=== PATIENT | female | born 1980 | race Caucasian/White ===

== ENCOUNTER → 2020-08-27 10:16 | Outpatient (CLI) | payer OTHER, SELFPAY | PROVIDERS: Visit Provider Obstetrics & Gynecology | DX: Z03.818 Encounter for observation for suspected exposure to other biological agents ruled out (principal) | CPT/HCPCS: 87635; C9803; U0005; U0003 ==

== ENCOUNTER 2020-08-28 14:30 | Inpatient (IN) | payer OTHER, SELFPAY ==
[2015-01-28 15:03] VITALS: BMI 33.5
[2020-08-28] VITALS (22 sets, daily range): BP systolic 100–130; BP diastolic 56–69; PULSE 82–104; RESP 18; TEMP 36.6–37.4; O2SAT 84–100; BMI 36.6
[2020-08-28] MEDS: Lactated Ringers 1,000 ML 200 ML IV (14:45)
[2020-08-28] MEDS: Oxytocin 30 units/NS 500 ml 30 UNITS/500 ML IV.SOLN 334 UNITS IV (15:13)
[2020-08-28 15:19] LABS: Absolute Lymphocyte Count 1.72 X10^3/uL (0.83-4.51); Absolute Neutrophil Count 12.7 X10^3/uL (2.0-7.7); Basophil# 0.03 X10^3/uL; Basophil% 0.2 % (0-1); Eosinophil# 0.02 X10^3/uL; Eosinophils% 0.1 % (0-5); Hematocrit 37.3 % (37-47); Hemoglobin 11.9 g/dL (12.0-15.0); Lymphocyte # 1.72 X10^3/ul (4.0); Lymphocyte % 10.9 % (19-41); Mean Corp Hgb Conc 31.9 g/dL (32-36); Mean Corpuscular Hgb 26.9 pg (27.0-32.0); Mean Corpuscular Volume 84.4 fL (81-99); Mean Platelet Vol. 9.9 fl (6.2-12.0); Monocyte# 1.26 X10^3/uL; NRBC Flagged by Analyzer 0 % (0-5); Neutrophil # 12.66 X10^3/uL (2.7-7.7); Neutrophil % 79.9 % (47-70); Platelet Count 297 K/mm3 (150-450); RBC Distribution Width SD 40.1 fl (35.1-43.9); Red Blood Count 4.42 M/mm3 (4.2-5.4); White Blood Count 15.8 K/mm3 (4.4-11.0)
--- NOTE | 2020-08-28 16:15 | PCM.HP.OB ---
- Problem List (1) 38 weeks gestation of Status: Acute (2) Active labor Status: Acute (3) SROM (spontaneous rupture of membranes) Status: Acute (4) AMA (advanced maternal age) multigravida 35+ Status: Acute History Date of Admission: 08/28/20 Final VINOD: 09/07/20 Gestational age: 38 Weeks and 4 Days History of this : This is a 39 year-old, G [2], P [1], at 38.4 weeks gestational age sent from office for SROM and being in active labor. Patient had gush of fluid at 1400. Fluid was blood tinged. Having contractions every 2-3 minutes. Positive movement. complicated by AMA, smoking, and history of anxiety. Allergies No Known Allergies Allergy (Verified 01/28/15 15:02) Home Medications: Home Medications Ferrous Sulfate [Iron Supplement] 325 mg PO 01/28/15 Prenatabs FA 01/28/15 Smoking Status: Former smoker Number of Fetus(es): 1 History Past Pregnancies: Past Pregnancies Delivery Date Name GA/ Weeks Outcome Route Wt Sex Labor Length Anesthesia Delivery Location Provider FOB Labs: O+ Rubella- immune HB- neg HC- neg RPR- NR HIV- NR COVID-19- unknown GBS positive Expected Infant Delivery Method: Spontaneous Vaginal Review of Systems Constitutional: Denies: Fever, Malaise, Weakness HEENT: Denies: Head Aches Cardiovascular: Denies: Chest Pain Respiratory: Denies: Cough, Shortness of Breath Gastrointestinal: Denies: Abdominal Pain Genitourinary: Denies: Dysuria Neurological: Denies: Blurred vision, Headaches Physical Exam Vitals: Vital Signs Temp Pulse BP Pulse Ox 98.4 F 104 H 120/61 84 08/28/20 15:59 08/28/20 16:12 08/28/20 16:12 08/28/20 16:05 General: Alert, Oriented x3, Cooperative Cardiovascular: Regular rate Lungs: Normal air movement Abdomen: Soft, Non Tender Extremities:: No edema Assessment/Plan All Active Problems 38 weeks gestation of (Acute) Active labor (Acute) SROM (spontaneous rupture of membranes) (Acute) AMA (advanced maternal age) multigravida 35+ (Acute) This is a 39 year-old, G [2], P [1], at 38.4 weeks gestational age with SROM and active labor. Admit to labor and delivery IV fluids per orders Routine labs GBS + Start PCN 5 million units IV x1 now and continue with PCN 3 million units IV every 4 hours until delivery COVID- 19 screening Epidural when indicated Anticipate Dr. Garcia notified and is collaborating physician
--- NOTE | 2020-08-28 16:25 | OP.PCM_ITS ---
Problem List (1) 38 weeks gestation of Status: Acute (2) Active labor Status: Acute (3) SROM (spontaneous rupture of membranes) Status: Acute (4) AMA (advanced maternal age) multigravida 35+ Status: Acute Report of Operation Date of Procedure: 08/28/20 Pre-Operative Diagnosis: SROM, Term gestation, Active labor Vaginal Delivery Maternal Presentation: Active Labor, Spontaneous Rupture of Membranes Patient is a at 38.4 weeks gestation that presented with SROM and active labor. Patient came directly from office. CE in office was 680/-1 with grossly ruptured membranes. Fluid was blood tinged. Amniotic Membrane Rupture Type: Spontaneous at home Rupture of Membrane time: 1400 Amniotic Fluid Description: Bloody Final VINOD: 09/07/20 Gestational age: 38 Weeks and 4 Days Date of Procedure: 08/28/20 Pre-Operative Diagnosis: Term gestation, SROM, active labor Post-Operative Diagnosis: same, live male Surgery/ Procedure Performed: Spontaneous Vaginal Delivery, - - Precipitous delivery Type of Anesthesia: Local with 1% lidocaine Description of Procedure: Patient arrived to unit and quickly progressed to complete dilation and began bearing down. Minimal effort by patient and head of infant delivered quickly followed by shoulders and remainder of . Placed immediately on maternal abdomen and attended to by nursing staff. 3 vessel cord clamped and cut after 2 minute delay. Infant skin to skin with patient. Pitocin IV started for active management of third stage of labor. Placenta delivered spontaneously and intact. After inspection, a second degree perineal laceration noted and repaired in n ormal fashion using 3-0 Vicryl after administering local anesthesia. Hemostasis occurred. Fundus firm 1 below U. Vaginal sweep completed by me. All laps, instruments and needles accounted for. Patient bonding with infant. EBL- 300cc / APGARS 04/15 Dr. Garcia notified of delivery. Presentation: Vertex Placental Delivery Description: Spontaneous Placenta Disposition: [facility] Cord Vessel Description: 3 Vessels Cord Entanglement: None Estimated Blood Loss: 300 A gender: Male (1 minute): 9 (5 minute): 9 Episiotomy Description: None Laceration: Perineal Extension/lac, 2nd degree Medications given after delivery: IV Pitocin Complications: None
--- NOTE | 2020-08-28 21:50 | NURSING ---
Pt nurse and CPR certified, support person, Roberto, watched CPR video and verbalized understanding.
[2020-08-29 03:45] VITALS: BP 118/64; PULSE 68; RESP 18; TEMP 36.4
[2020-08-29 08:00] VITALS: BP 104/56; PULSE 74; RESP 15; TEMP 35.9
--- NOTE | 2020-08-29 10:32 | PN.OBGYN_ITS ---
Patient Problems: Active and Suspected Problems 38 weeks gestation of (Acute) Active labor (Acute) SROM (spontaneous rupture of membranes) (Acute) AMA (advanced maternal age) multigravida 35+ (Acute) Subjective: Patient seen at bedside. Sitting up in chair at bedside eating breakfast. Feeling good. Denies any pain. Ambulating and voiding without difficulty. without difficulty. Desires discharge home today but baby needs to stay due to GBS positive and untreated. - Physical Exam Vitals/I&O's: Vital Signs Temp Pulse Resp BP Pulse Ox 96.7 F L 74 15 104/56 L 96 08/29/20 08:00 08/29/20 08:00 08/29/20 08:00 08/29/20 08:00 08/28/20 16:25 Oxygen Delivery Method Room Air Weight: 200 lb 4 oz Body Mass Index (BMI) 36.6 Intake and Output for Last 24 Hours 08/27/20 08/28/20 08/29/20 23:59 23:59 23:59 Intake Total 598.33 / 598.33 Output Total 400 / 400 Balance 198.33 / 198.33 General: Alert, Oriented x3, Cooperative HEENT: Atraumatic Oral: Moist Mucosa Neck: Supple Lungs: Normal air movement Cardiovascular: Regular rate Abdomen: Soft, Non Tender, Passing Flatus Extremities: No edema, Capillary Refill Less than 3 Seconds Skin: No rashes, No breakdown Musculoskeletal: No Tenderness to Palpation of Joints or Extremities Neurological: Cranial nerves II-XII grossly intact Psych/Mental Status: Normal Affect, Appropriate Laboratory Results 08/28/20 14:45: WBC 15.8 H, RBC 4.42, Hgb 11.9 L, Hct 37.3, MCV 84.4, MCH 26.9 L , MCHC 31.9 L, RDW Std Deviation 40.1, RDW Coeff of Mery 13.0, Plt Count 297, MPV 9.9, Immature Gran % (Auto) 0.900, Neut % (Auto) 79.9 H, Lymph % (Auto) 10.9 L, [place] % (Auto) 8.0, Eos % (Auto) 0.1, Baso % (Auto) 0.2, Absolute Neuts (auto) 12.7 H, Absolute Lymphs (auto) 1.72, Nucleated RBC % 0 08/28/20 14:45: Blood Type O POSITIVE, Antibody Screen NEGATIVE Current Medications Acetaminophen (Acetaminophen 500 Mg Tablet) 1,000 mg PO Q8H PRN PRN PRN Reason: Pain Score 1-10 Bisacodyl (Bisacodyl 10 Mg Suppository) 10 mg RECTAL UD PRN PRN Reason: If no BM Dibucaine (Dibucaine 30 Gm Tube) 1 applic TOPICAL TID PRN PRN; Protocol PRN Reason: Discomfort Hydrocortisone (Hydrocortisone 2.5% Crm) 1 applic TOPICAL TID PRN PRN; Protocol PRN Reason: Discomfort Ibuprofen (Ibuprofen 600 Mg Tablet) 600 mg PO Q6H PRN PRN PRN Reason: Pain Score 1-10 Methylergonovine Maleate (Methylergonovine 0.2 Mg/Ml Ampul) 0.2 mg IM X1 PRN PRN Reason: Excess bleeding/uterine atony Ondansetron HCl (Ondansetron 4 Mg/2 Ml Vial) 4 mg IV Q4H PRN PRN PRN Reason: Nausea Senna/Docusate Sodium (Senna/Docusate Sodium 1 Tablet) 1 - 2 tablet PO DAILY PRN PRN PRN Reason: Constipation Simethicone (Simethicone 80 Mg Tablet) 80 mg PO PCHS PRN PRN Reason: Indigestion/Stomach pain Sodium Chloride (0.9% Saline Lock 10 Ml Syringe) 5 - 15 ml IV UD PRN PRN Reason: SALINE FLUSH Medical Necessity - Tobacco Use Smoking Status: Former smoker Assessment/Plan All Active Problems 38 weeks gestation of (Acute) Active labor (Acute) SROM (spontaneous rupture of membranes) (Acute) AMA (advanced maternal age) multigravida 35+ (Acute) PPD #1 2nd degree laceration Routine care support Anticipate discharge home tomorrow
[2020-08-29 11:20] VITALS: BP 99/64; PULSE 67; RESP 16; TEMP 35.9
[2020-08-29 16:00] VITALS: BP 116/68; PULSE 66; RESP 20; TEMP 36.4; O2SAT 97
[2020-08-29 20:40] VITALS: BP 114/69; PULSE 59; RESP 16; TEMP 36.4
[2020-08-30 01:25] VITALS: BP 100/57; PULSE 67; RESP 18; TEMP 36.3
[2020-08-30 08:16] VITALS: BP 100/55; PULSE 61; RESP 14; TEMP 36.1
--- NOTE | 2020-08-30 09:57 | PCM.PN.OB ---
Patient Problems: Active and Suspected Problems 38 weeks gestation of (Acute) Active labor (Acute) SROM (spontaneous rupture of membranes) (Acute) AMA (advanced maternal age) multigravida 35+ (Acute) Subjective: Patient seen at bedside. Feeling good. without difficulty. Denies any pain. Ambulating and voiding without difficulty. Desires discharge home today. - Physical Exam Vitals/I&O's: Vital Signs Temp Pulse Resp BP Pulse Ox 97.0 F L 61 14 100/55 L 97 08/30/20 08:16 08/30/20 08:16 08/30/20 08:16 08/30/20 08:16 08/29/20 16:00 Oxygen Delivery Method Room Air Weight: 200 lb 4 oz Body Mass Index (BMI) 36.6 Intake and Output for Last 24 Hours 08/28/20 08/29/20 08/30/20 23:59 23:59 23:59 Intake Total 598.33 / 598.33 Output Total 400 / 400 Balance 198.33 / 198.33 General: Alert, Oriented x3, Cooperative HEENT: Atraumatic Oral: Moist Mucosa Neck: Supple Lungs: Normal air movement Cardiovascular: Regular rate Abdomen: Soft, Non Tender Skin: No rashes Musculoskeletal: No Tenderness to Palpation of Joints or Extremities Neurological: Cranial nerves II-XII grossly intact Psych/Mental Status: Normal Affect, Appropriate Current Medications Acetaminophen (Acetaminophen 500 Mg Tablet) 1,000 mg PO Q8H PRN PRN PRN Reason: Pain Score 1-10 Bisacodyl (Bisacodyl 10 Mg Suppository) 10 mg RECTAL UD PRN PRN Reason: If no BM Dibucaine (Dibucaine 30 Gm Tube) 1 applic TOPICAL TID PRN PRN; Protocol PRN Reason: Discomfort Hydrocortisone (Hydrocortisone 2.5% Crm) 1 applic TOPICAL TID PRN PRN; Protocol PRN Reason: Discomfort Ibuprofen (Ibuprofen 600 Mg Tablet) 600 mg PO Q6H PRN PRN PRN Reason: Pain Score 1-10 Methylergonovine Maleate (Methylergonovine 0.2 Mg/Ml Ampul) 0.2 mg IM X1 PRN PRN Reason: Excess bleeding/uterine atony Ondansetron HCl (Ondansetron 4 Mg/2 Ml Vial) 4 mg IV Q4H PRN PRN PRN Reason: Nausea Senna/Docusate Sodium (Senna/Docusate Sodium 1 Tablet) 1 - 2 tablet PO DAILY PRN PRN PRN Reason: Constipation Simethicone (Simethicone 80 Mg Tablet) 80 mg PO PCHS PRN PRN Reason: Indigestion/Stomach pain Sodium Chloride (0.9% Saline Lock 10 Ml Syringe) 5 - 15 ml IV UD PRN PRN Reason: SALINE FLUSH Medical Necessity - Tobacco Use Smoking Status: Former smoker Assessment/Plan All Active Problems 38 weeks gestation of (Acute) Active labor (Acute) SROM (spontaneous rupture of membranes) (Acute) AMA (advanced maternal age) multigravida 35+ (Acute) PPD #2 - 2nd degree laceration Routine care support Discharge home with follow up in office
--- NOTE | 2020-08-30 10:00 | DCINST_ITS ---
Discharge Diet: No Restrictions May resume sexual activity in: 6-8 weeks Additional Instructions: If you experience any of the following, contact your healthcare provider. * Bleeding that soaks a pad every hour for 2 hours * Fever 100.4 or higher * Unrelieved incision or abdominal pain * Swelling, redness, discharge or bleeding from your incision or episiotomy site * Your incision begins to separate * Problems urinating (including inability to urinate or burning while urinating). * Visual changes * Severe headache * Flu-like symptoms * Pain or redness in one of both of your breasts * Pain, warmth, tenderness or swelling in your legs, especially the calf area * Frequent nausea and vomiting * Symptoms of depression or anxiety If you experience any of the following, call 911 or go to the nearest Emergency Room. * Chest pain * Problems breathing * Seizure activity * Partial or complete paralysis of a body part, slurred speech, weakness or drooping of the face, or a sudden inability to walk or hold your balance Allergies/Adverse Reactions: Allergies No Known Allergies Allergy (Verified 08/28/20 16:37) Medications to take at Discharge Ferrous Sulfate [Iron Supplement] 325 mg PO DAILY 01/28/15 Prenatabs FA 1 tab PO DAILY 01/28/15 Please Follow Up With: office When: 2 weeks virtual/ 6 weeks in office Primary Care Physician: Care Physician,No Primary [Primary Care Provider] - Test Results: Test results from this visit will be discussed in further detail at your follow-up appointment, if applicable.
--- NOTE | 2020-08-30 10:00 | PCM.DCVAG ---
Discharge Diet: No Restrictions May resume sexual activity in: 6-8 weeks Additional Instructions: If you experience any of the following, contact your healthcare provider. Bleeding that soaks a pad every hour for 2 hours Fever 100.4 or higher Unrelieved incision or abdominal pain Swelling, redness, discharge or bleeding from your incision or episiotomy site Your incision begins to separate Problems urinating (including inability to urinate or burning while urinating). Visual changes Severe headache Flu-like symptoms Pain or redness in one of both of your breasts Pain, warmth, tenderness or swelling in your legs, especially the calf area Frequent nausea and vomiting Symptoms of depression or anxiety If you experience any of the following, call 911 or go to the nearest Emergency Room. Chest pain Problems breathing Seizure activity Partial or complete paralysis of a body part, slurred speech, weakness or drooping of the face, or a sudden inability to walk or hold your balance Allergies/Adverse Reactions: Allergies No Known Allergies Allergy (Verified 08/28/20 16:37) Medications to take at Discharge Ferrous Sulfate [Iron Supplement] 325 mg PO DAILY 01/28/15 Prenatabs FA 1 tab PO DAILY 01/28/15 Please Follow Up With: office When: 2 weeks virtual/ 6 weeks in office Primary Care Physician: Care Physician,No Primary [Primary Care Provider] - Test Results: Test results from this visit will be discussed in further detail at your follow-up appointment, if applicable.
== END 2020-08-30 10:55 | disposition home or self-care (01) | DRG 807 ==
PROVIDERS: Admitting Provider Advanced Practice Midwife; Visit Provider Advanced Practice Midwife
DX: O98.82 Other maternal infectious and parasitic diseases complicating childbirth (principal); Z37.0 Single live birth; B95.1 Streptococcus, group B, as the cause of diseases classified elsewhere; O99.334 Smoking (tobacco) complicating childbirth; F17.200 Nicotine dependence, unspecified, uncomplicated; O70.1 Second degree perineal laceration during delivery; Z3A.38 38 weeks gestation of pregnancy
CPT/HCPCS: 59025; 59050; 85025; 86850; 86900; 86901; 99218; J7120; G0378

== ENCOUNTER 2020-11-19 14:29 | Outpatient (RCR) | payer OTHER, SELFPAY ==
[2020-08-28 14:41] VITALS: BMI 36.6
== END 2021-01-12 23:59 ==
LOC: IMMUN 14:29
PROVIDERS: PCP Family Medicine; Visit Provider Family Medicine
DX: Z23 Encounter for immunization (principal)
CPT/HCPCS: 0001A; 0002A; 91300